=== PATIENT | male | born 1975 | race Caucasian/White ===

== ENCOUNTER → 2020-06-21 | Outpatient (CLI) | payer OTHER ==
[2020-06-21 23:32] LABS: Basophils # (A) 0.02 X 10*3/uL (0.00-0.10); Basophils % (A) 0.4 %; Eosinophils # (A) 0.24 X 10*3/uL (0.04-0.35); Eosinophils % (A) 4.8 %; HCT 45.4 % (39.6-50.0); Lymphocytes # (A) 1.83 X 10*3/uL (0.90-5.00); Lymphocytes % (A) 36.8 %; MCH 30.6 pg (27.0-32.0); MCV 92.7 fL (80.0-97.0); Monocytes # (A) 0.38 X 10*3/uL (0.20-1.00); Monocytes % (A) 7.6 %; Neutrophils # (A) 2.49 X 10*3/uL (1.80-7.70); Neutrophils % (A) 50.2 %; Platelet Count 200 X 10*3/uL (140-440); RDW 12.2 % (11.5-14.5); WBC 4.97 X 10*3/uL (4.50-10.00)
[2020-06-22 00:32] LABS: Hemoglobin A1C 5.2 % (4.0-6.0)
[2020-06-22 02:40] LABS: African American GFR (CKD) 120.8 (60.0-200.0); Albumin 4.6 g/dL (3.80-4.90); Albumin/Globulin Ratio 2.3 (1.60-3.17); Anion Gap 8.4 mmol/L (4.00-12.00); BUN/Creat Ratio 18.89 Ratio (12.00-20.00); Calcium 9.6 mg/dL (8.7-10.3); Carbon Dioxide 27.6 mmol/L (21.6-31.8); Chol/HDL Ratio 3.47; LDL Cholesterol,Calculated 90.6 mg/dL (0.0-131.0); Non-African American GFR(CKD) 104.2 (60.0-200.0); Potassium 4.5 mmol/L (3.5-5.5); Total Bilirubin 1.4 mg/dL (0.2-1.2); Total Protein 6.6 g/dL (6.2-8.2); VLDL Calculation 15.4 mg/dL (5.00-40.00)
[2020-06-22 02:49] LABS: T4, Free (Free Thyroxine) 1.2 ng/dL (0.80-1.80)
[2020-06-22 02:51] LABS: PSA Annual Screen 1.4 ng/mL (0.0-4.0)
[2020-06-24 04:54] LABS: Herpes simplex I and/or II IgM 0.38 INDEX (<=0.90); Herpes simplex IgG II Ab 5.57 (< or = 0.90)
== END | disposition home or self-care (01) ==
LOC: LABWHC1 13:39
PROVIDERS: ATTEND Family Medicine
DX: Z00.00 Encounter for general adult medical examination without abnormal findings (principal); Z12.5 Encounter for screening for malignant neoplasm of prostate; Z20.2 Contact with and (suspected) exposure to infections with a predominantly sexual mode of transmission; Z20.828 Contact with and (suspected) exposure to other viral communicable diseases; E55.9 Vitamin D deficiency, unspecified
CPT/HCPCS: 84439; 80061; 80053; 86696; 86694; 86695; 84443; 85025; 82306; 86780; 87390; 83036; 36415; G0103